=== PATIENT | female | born 1960 | race Two or more races ===

== ENCOUNTER 2022-01-04 06:04 | Day surgery (SDC) | payer OTHER ==
[~2022-01-04 06:04] MED LIST: GLUMETZA1000 MG PO; HORIZANT300 MG PO; LIPITOR40 M1 PO; SYNTHROID200 MCG PO
[2022-01-04] MEDS ORDERED: MUPIROCIN22 GM MM (08:46)
[2022-01-04] MEDS ORDERED: BACTRIM DS TAB1 EACH PO (08:46)
== END 2022-01-04 10:40 | disposition home or self-care (01) ==
LOC: CIR.AMB 06:04
PROVIDERS: ATTEND Otolaryngology Otology & Neurotology
DX: D04.39 Carcinoma in situ of skin of other parts of face (principal); E78.5 Hyperlipidemia, unspecified; Z71.6 Tobacco abuse counseling; F17.210 Nicotine dependence, cigarettes, uncomplicated; E11.9 Type 2 diabetes mellitus without complications; E03.9 Hypothyroidism, unspecified; E11.42 Type 2 diabetes mellitus with diabetic polyneuropathy; Z79.84 Long term (current) use of oral hypoglycemic drugs